=== PATIENT | male | born 2000 ===

== ENCOUNTER 2022-06-16 20:01 | Inpatient (IN) | payer MEDICAID, SELFPAY ==
--- NOTE | ~2022-06-16 | XR_ITS ---
EXAMINATION: LEFT KNEE AND LEFT ANKLE CLINICAL INFORMATION: Pain on flexion COMPARISON: None TECHNIQUE: Left ankle 3 views and left knee 4 views. FINDINGS: Left knee: There is maintained tricompartment joint space. No visible acute fracture, dislocation or subluxation seen. No bony erosive changes. No abnormal joint effusion. Left ankle: The ankle mortise and subtalar joints are normal. There is no visible acute fracture or dislocation. There is bimalleolar mild soft tissue swelling XR/XR knee LT 4V IMPRESSION: Mild bimalleolar soft tissue swelling but no visible acute fracture, dislocation or subluxation seen the ankle mortise is intact. Unremarkable left knee exam.
--- NOTE | ~2022-06-16 | XR_ITS ---
EXAMINATION: LEFT KNEE AND LEFT ANKLE CLINICAL INFORMATION: Pain on flexion COMPARISON: None TECHNIQUE: Left ankle 3 views and left knee 4 views. FINDINGS: Left knee: There is maintained tricompartment joint space. No visible acute fracture, dislocation or subluxation seen. No bony erosive changes. No abnormal joint effusion. Left ankle: The ankle mortise and subtalar joints are normal. There is no visible acute fracture or dislocation. There is bimalleolar mild soft tissue swelling XR/XR ankle LT min 3V IMPRESSION: Mild bimalleolar soft tissue swelling but no visible acute fracture, dislocation or subluxation seen the ankle mortise is intact. Unremarkable left knee exam.
--- NOTE | 2022-06-16 20:13 | ED_ITS ---
HPI - Psych General Chief Complaint: Psychiatric Symptoms Stated Complaint: section 12 Time Seen by Provider: 06/16/22 20:13 Source: patient, EMS and police Mode of arrival: EMS Limitations: altered mental status (Sandra and psychosis) History of Present Illness HPI Narrative: 22-year-old male presents via EMS on Section 12 from [place] in the community escorted by police. Patient has been making vague threats to bystanders and police. Patient is paranoid and delusional. Patient is not answering questions at this time. MD complaint: other (Paranoid and delusional) Onset (ago): unknown Duration: constant History of same: Yes Relieving factors: none Context: not taking psychiatric medications Associated psychiatric symptoms: racing thoughts and delusions Associated symptoms: denies other symptoms Treatments prior to arrival: placed on mental health hold Related Data Home Medications Medication Instructions Recorded Confirmed No Known Home Meds 06/16/22 06/16/22 Allergies Allergy/AdvReac Type Severity Reaction Status Date / Time No Known Allergies Allergy Verified 06/16/22 20:14 Review of Systems Review of Systems: Yes Unobtainable due to mental status (Patient is delusional, uncooperative with review of systems at this time.) [facility] Past Medical History Attestation statement: The following information was validated with the patient. Source: old records reviewed Social History Social History Advance Directives: No Advance Directives Information Provided: Yes Physical Exam Vital Signs: Vital Signs: Last Vital Signs Temp 98.4 F 06/16/22 20:24 Pulse 125 H 06/16/22 20:24 Resp 18 06/16/22 20:24 BP 162/105 H 06/16/22 20:24 Pulse Ox 98 06/16/22 20:24 O2 Del Method 06/16/22 20:24 BMI result Body Mass Index 27.3 Appearance: Alert. Delusional and paranoid. Moderate psychiatric distress Eyes: Pupils equal, round and reactive to light. Sclera nonicteric. ENT: Pharynx normal. Neck: Normal inspection. Neck supple. CVS: Normal heart rate and rhythm. Pulses normal. Respiratory: No respiratory distress. Breath sounds normal. Abdomen: Soft and nontender. Skin: Skin warm and dry. Normal skin color. Normal skin turgor. Extremities: Gait is balanced and coordinated. Neuro: No motor deficit. No sensory deficit. Cranial nerves 2-12 intact. Course Course Course Narrative: 22-year-old male presents via EMS with police escort for paranoid and delusional behavior. Patient has been threatening bystanders as well as police and is a Section 12 bed search from the community. Will order labs and crisis consult. 22:12 Patient is unable to be redirected, pacing about the unit and entering [facility] rooms. Unable to be redirected. Patient willing to take p.o. medications. Order for olanzapine. 23:30 patient continues to pace, intrusive, unable to be redirected. Order for Ativan 2 mg p.o.. 01:38 elevated liver enzymes AST ALT and alk-phos. Patient did not report abdominal pain to palpation on physical exam on presentation, has no history of hepatitis or pancreatitis. Will order CT scan of abdomen pelvis. Lipase is pending. 01:50 sign-out Dr. Monteiro MDM - Psych Differential Diagnosis Differential diagnosis: Likely acute psychosis, bipolar disorder, depression, drug-induced psychotic disorder and acute anxiety Medical Records Attestation: I reviewed the patient's medical records. Lab Data Attestation: I reviewed the patient's lab results. Result diagrams: 06/16/22 21:08 06/16/22 21:08 Labs: Lab Results 06/16/22 06/16/22 06/16/22 Range/Units 20:30 20:43 21:08 WBC 7.6 (4.8-10.8) X10*3/uL RBC 5.68 (4.60-5.80) X10*6/uL Hgb 12.9 L (14.0-18.0) g/dl Hct 40.4 L (42.0-52.0) % MCV 71.1 L (80.0-98.0) fL MCH 22.7 L (27.0-33.0) pg MCHC 31.9 (31.0-36.0) g/dl RDW 15.4 (11.0-16.0) % Plt Count 320 (160-400) X10*3/uL MPV 11.7 (9.4-12.4) fL Immature Gran % (Auto) 0.3 (0.0-0.4) % Neut % (Auto) 73.0 (45-73) % Lymph % (Auto) 19.1 L (20-40) % [place] % (Auto) 7.2 (2-11) % Eos % (Auto) 0.1 (0-4) % Baso % (Auto) 0.3 (0-2) % Lymph # (Auto) 1.5 (1.2-4.9) X10*3/uL [place] # (Auto) 0.6 (0.1-1.2) X10*3/uL Eos # (Auto) 0.0 (0.0-0.4) X10*3/uL Baso # (Auto) 0.0 (0.0-0.2) X10*3/uL Abs Immat Gran (auto) 0.02 (0.00-0.03) X10*3/uL Absolute Neuts (auto) 5.6 (2.0-8.3) x10*3/uL Absolute Nucleated RBC 0.000 (0.0-0.012) X10*3/uL Nucleated RBC % (auto) 0.0 (0.0-0.2) /100WBC Sodium (135-145) mmol/L Potassium (3.3-5.1) mmol/L Chloride (96-108) mmol/L Carbon Dioxide (22-29) mmol/L Anion Gap (12-20) BUN (9-16) mg/dL Creatinine (0.5-1.4) mg/dL Estim Creat Clear Calc Estimated GFR Random Glucose (60-115) mg/dL Calcium (8.4-10.2) mg/dL Total Bilirubin (0.0-1.0) mg/dL AST (5-37) U/L ALT (0-40) U/L Alkaline Phosphatase (39-117) U/L Total Protein (6.5-8.0) g/dL Albumin (3.5-5.0) g/dL Urine Opiates Screen Not Detected (Not Detect) Urine Fentanyl Screen Not Detected (Not Detect) Ur Barbiturates Screen Not Detected (Not Detect) Ur Phencyclidine Scrn Not Detected (Not Detect) Ur Amphetamines Screen Not Detected (Not Detect) U Benzodiazepines Scrn Not Detected (Not Detect) Urine Cocaine Screen Not Detected (Not Detect) U Marijuana (THC) Screen POSITIVE H (Not Detect) Ethyl Alcohol mg/dL COVID-19 (EZIO) Negative (Negative) COVID-19 Clin Com See Note 06/16/22 Range/Units 21:08 WBC (4.8-10.8) X10*3/uL RBC (4.60-5.80) X10*6/uL Hgb (14.0-18.0) g/dl Hct (42.0-52.0) % MCV (80.0-98.0) fL MCH (27.0-33.0) pg MCHC (31.0-36.0) g/dl RDW (11.0-16.0) % Plt Count (160-400) X10*3/uL MPV (9.4-12.4) fL Immature Gran % (Auto) (0.0-0.4) % Neut % (Auto) (45-73) % Lymph % (Auto) (20-40) % [place] % (Auto) (2-11) % Eos % (Auto) (0-4) % Baso % (Auto) (0-2) % Lymph # (Auto) (1.2-4.9) X10*3/uL [place] # (Auto) (0.1-1.2) X10*3/uL Eos # (Auto) (0.0-0.4) X10*3/uL Baso # (Auto) (0.0-0.2) X10*3/uL Abs Immat Gran (auto) (0.00-0.03) X10*3/uL Absolute Neuts (auto) (2.0-8.3) x10*3/uL Absolute Nucleated RBC (0.0-0.012) X10*3/uL Nucleated RBC % (auto) (0.0-0.2) /100WBC Sodium 143 (135-145) mmol/L Potassium 3.9 (3.3-5.1) mmol/L Chloride 109 H (96-108) mmol/L Carbon Dioxide 20 L (22-29) mmol/L Anion Gap 18 (12-20) BUN 10 (9-16) mg/dL Creatinine 1.43 H (0.5-1.4) mg/dL Estim Creat Clear Calc 78.3 Estimated GFR > 60 Random Glucose 142 H (60-115) mg/dL Calcium 10.5 H (8.4-10.2) mg/dL Total Bilirubin 0.6 (0.0-1.0) mg/dL AST 49 H (5-37) U/L ALT 165 H (0-40) U/L Alkaline Phosphatase 136 H (39-117) U/L Total Protein 8.5 H (6.5-8.0) g/dL Albumin 5.2 H (3.5-5.0) g/dL Urine Opiates Screen (Not Detect) Urine Fentanyl Screen (Not Detect) Ur Barbiturates Screen (Not Detect) Ur Phencyclidine Scrn (Not Detect) Ur Amphetamines Screen (Not Detect) U Benzodiazepines Scrn (Not Detect) Urine Cocaine Screen (Not Detect) U Marijuana (THC) Screen (Not Detect) Ethyl Alcohol < 10 mg/dL COVID-19 (EZIO) (Negative) COVID-19 Clin Com Discharge Plan Discharge Clinical Impression: Acute psychosis Patient Disposition: Still a Patient Prescriptions: No Action No Known Home Meds
[2022-06-16 20:24] VITALS: BP 162/105; PULSE 125; RESP 18; TEMP 36.9; O2SAT 98; BMI 27.3
[2022-06-16 21:01] LABS: COVID-19 Test Negative (Negative); IDNOW Serial# 55D5AD1C
[2022-06-16 21:10] LABS: Amphetamine Screen Urine Not Detected (Not Detect); Barbiturates, Urine Not Detected (Not Detect); Benzodiazepines Screen Urine Not Detected (Not Detect); Cannabinoid Screen Urine POSITIVE (Not Detect); Cocaine Screen Urine Not Detected (Not Detect); Fentanyl, urine Not Detected (Not Detect); Opiate Screen Urine Not Detected (Not Detect); Phencyclidine Screen Urine Not Detected (Not Detect)
[2022-06-16 21:14] LABS: MANUAL DIFF FLAG NO
[2022-06-16 21:15] LABS: Basophils Percent Auto 0.3 % (0-2); Eosinophils Percent Auto 0.1 % (0-4); Hematocrit 40.4 % (42.0-52.0); Hemoglobin 12.9 g/dl (14.0-18.0); Imm Gran Abs Auto 0.02 X10*3/uL (0.00-0.03); Imm Gran Pct Auto 0.3 % (0.0-0.4); Lymphocytes Absolute Auto 1.5 X10*3/uL (1.2-4.9); Lymphocytes Percent Auto 19.1 % (20-40); Mean Corpuscular HGB Conc 31.9 g/dl (31.0-36.0); Mean Corpuscular Hemoglobin 22.7 pg (27.0-33.0); Mean Corpuscular Volume 71.1 fL (80.0-98.0); Mean Platelet Volume 11.7 fL (9.4-12.4); Monocytes Absolute Auto 0.6 X10*3/uL (0.1-1.2); Monocytes Percent Auto 7.2 % (2-11); Neutrophils Absolute Auto 5.6 x10*3/uL (2.0-8.3); Platelet Count 320 X10*3/uL (160-400); Red Blood Count 5.68 X10*6/uL (4.60-5.80); Red Cell Distribution Width 15.4 % (11.0-16.0); White Blood Count 7.6 X10*3/uL (4.8-10.8)
[2022-06-16 21:33] LABS: Alanine Aminotransferase 165 U/L (0-40); Albumin Level 5.2 g/dL (3.5-5.0); Alkaline Phosphatase 136 U/L (39-117); Anion Gap 18 (12-20); Aspartate Amino Transferase 49 U/L (5-37); Bilirubin Total 0.6 mg/dL (0.0-1.0); Blood Urea Nitrogen 10 mg/dL (9-16); Calcium 10.5 mg/dL (8.4-10.2); Carbon Dioxide 20 mmol/L (22-29); Chloride 109 mmol/L (96-108); Creatinine Clr Calc Pharmacy 78.3; Estimated Glomerular Filt Rate > 60; Ethanol < 10 mg/dL; Glucose Random 142 mg/dL (60-115); Potassium 3.9 mmol/L (3.3-5.1); Sodium 143 mmol/L (135-145); Total Protein 8.5 g/dL (6.5-8.0)
[2022-06-16] MEDS: OLANZapine 10 MG TABLET PO (23:35)
[2022-06-16] MEDS: LORazepam 1 MG TABLET 2 MG PO (23:38)
--- NOTE | 2022-06-17 | ECG_ITS ---
Test Reason : MEDICAL CLEARANCE Blood Pressure : / mmHG Vent. Rate : 073 BPM Atrial Rate : 073 BPM P-R Int : 128 ms QRS Dur : 098 ms QT Int : 380 ms P-R-T Axes : 039 036 045 degrees QTc Int : 418 ms Normal sinus rhythm with sinus arrhythmia Normal ECG No previous ECGs available Referred By: Stacie Holloway Electronically Signed By:MINESH NORIEGA MD
[2022-06-17 01:56] LABS: Lipase 13 U/L (8-78)
--- NOTE | 2022-06-17 06:20 | PC.NURSE ---
Patient slept through the night, no distress observed/reported, patient was hyper-verbal, tangential, loud and disruptive at time but re-directable, Olanzapine 10 mg PO and Ativan 2 mg PO administered as ordered at 2348, disposition per [facility] from community is section 12 inpatient bed search, pending CT of abdomen and pelvis, will continue to monitor.
--- NOTE | 2022-06-17 07:20 | PC.NURSE ---
patient appears to remain asleep at present respirations are even and unlabored patient appears in no distress
[2022-06-17 10:04] VITALS: BP 113/75; PULSE 103; RESP 18; TEMP 36.8; O2SAT 100
[2022-06-17 10:20] LABS: Alanine Aminotransferase 149 U/L (0-40); Albumin Level 5.1 g/dL (3.5-5.0); Alkaline Phosphatase 140 U/L (39-117); Anion Gap 16 (12-20); Aspartate Amino Transferase 43 U/L (5-37); Bilirubin Direct 0.4 mg/dL (0.0-0.5); Bilirubin Total 0.9 mg/dL (0.0-1.0); Blood Urea Nitrogen 10 mg/dL (9-16); Calcium 10.4 mg/dL (8.4-10.2); Carbon Dioxide 25 mmol/L (22-29); Chloride 107 mmol/L (96-108); Creatinine Clr Calc Pharmacy 101.9; Estimated Glomerular Filt Rate > 60; Glucose Random 92 mg/dL (60-115); Potassium 3.8 mmol/L (3.3-5.1); Sodium 144 mmol/L (135-145); Total Protein 8.6 g/dL (6.5-8.0)
[2022-06-17] MEDS: OLANZapine 5 MG TABLET PO (14:37)
[2022-06-17 15:16] VITALS: BP 136/96; PULSE 126; RESP 17; TEMP 36.4; O2SAT 97
--- NOTE | 2022-06-17 17:45 | PC.NURSE ---
Pt is a 22 year old male who was brought by D after [facility] crisis were called in the community by pt's boyfriend. Earlier pt had been served with a restraining order for making threats to an ex-roomate. Pt is reported to have been off meds the past three months and has a history of Bipolar disorder. Today pt is lying in bed but sat up on his side to cooperated with the admission. He was hyperverbal, had difficulty staying on topic and repeatedly told this senior copywriter that this wasn't the place for him and that he wishes to leave; pt signed a CV, then a a three day notice. Pt reports he lives with his mother and sister and sees his boyfriend frequently. Pt reports he has had other psych admissions, the last about two years ago but he could not remember where. Mecical issue/complaint was an injury to his left knee which appears edematous, pt reports he fell and hit his knee although it is unclear how, pt has difficulty with organzing his thoughts enough to describe such an event. Pt denies substance use history other than marijuana, which he vapes throughout the day. Pt reports he has difficulty staying asleep. Pt Covid neg, labs are positive for cannabis, LFT's a little elevated and slightly anemic. ESHA Dumont aware of admission, pt resting in bed.
--- NOTE | 2022-06-17 17:59 | HO.PSYADMNOT ---
HPI Date of Service: 06/17/22 Chief Complaint: Bipolar Disorder, Sandra with Psychosis Sources of Information: patient interviewed, chart reviewed and crisis/core team assessment reviewed HPI Subjective Notes: Toribio Warning and Conditional Voluntary Healthcare Proxy: No Guardianship: No Medical Problems Affecting Mental Status: No Narrative: Rickey Aleman is a 22 y.o. Male who carries a diagnosis of Bipolar I DO. He presented to [facility] ED 06/17 via section 12a escorted by police due to pt making vague threats to bystanders and police, manic. Has been med non-adherent x 3 months because they made him feel ?suicidal? and he has been self medicating with cannabis instead, most recently on trintellix 20 mg, depakote ER 500 mg, olanzapine 10 mg, and vraylar 1.5 mg. In the ED, lab work showed mild elevation in LFTs, however imaging done as pt denied abdominal pain.?? Per crisis eval, pt's boyfriend reported that he has been decompensating for the past 3 months since he stopped taking his medications. Stated he has been delusional and verbally aggressive. Pt?s mother also reported he has been decompensating for the past few months. I evaluated the pt this evening and upon interview he reports ?if anybody gets in my way, I will saurav you.? Says his bf?s roommates have been making false accusations that he was doing drugs. Pt is labile during the interview, at times tearful and then excitable. Owns business, [employer], anything for a alliance party. He currently denies SI/SIB/HI. Denies AH. Says he has ?more anger and stress.? Appetite is low. Sleep is poor, endorses hyposomnia. Per staff, pt has been intrusive and agitated. Past Psychiatric History: -Hx of IPLOC in [place], no records available per crisis eval --Current OP psych services at [facility] in [place], [place]. OP provider is Jeanette Hilliard -Past meds: Depakote ER 500 mg (started 06/26/2021, last filled 04/21/2022), olanzapine 10 mg QHS (last filled 04/21/2022), olanzapine 15 mg (started 06/26/2021, last filled 03/11/2022), invega 3 mg QHS (started 06/26/2021, last filled 03/11/2022), trazodone 100 mg QHS (started 07/06/21, last filled 03/10/2022), trintellix (started at 10 mg on 08/18/2021, increased to 20 mg in 01/22/22 and last filled 04/21/22), vraylar 1.5 mg (started 04/21/2022). Also says he has been on lithium but it made him feel ?slower. Medical Evaluation Reviewed: Yes [facility] Medical History (Updated 06/19/22 @ 22:24 by Julia Schilling NP) Bipolar disorder Social History: -Legal: [place] Police reported that they had served Ash a restraining order on 06/17/22 due to making verbal threats to his previous roommates over the phone. -From [place]. Close with his bio mom. Has been residing in [place] with his bf x 4 yrs for the past few months. 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 However, per crisis eval pt is currently unemployed. Substance History: -Cannabis- daily use. Uses a vape pen multiple times throughout the day. Diagnostics Vital Signs (24Hr): Vital Signs - 24 hr 06/16/22 20:24 06/17/22 10:04 06/17/22 15:16 Temperature 98.4 F 98.3 F 97.6 F Pulse Rate 125 H 103 H 126 H Respiratory Rate 18 18 17 Blood Pressure 162/105 H 113/75 136/96 H Pulse Oximetry 98 100 97 Oxygen Delivery Method Room Air Room Air Room Air BMI result Body Mass Index 27.3 Labs Results: 06/16/22 21:08 06/17/22 09:39 Labs: Laboratory Results - last 48 hr 06/16/22 06/16/22 06/16/22 20:30 20:43 21:08 WBC 7.6 RBC 5.68 Hgb 12.9 L Hct 40.4 L MCV 71.1 L MCH 22.7 L MCHC 31.9 RDW 15.4 Plt Count 320 MPV 11.7 Immature Gran % (Auto) 0.3 Neut % (Auto) 73.0 Lymph % (Auto) 19.1 L [place] % (Auto) 7.2 Eos % (Auto) 0.1 Baso % (Auto) 0.3 Lymph # (Auto) 1.5 [place] # (Auto) 0.6 Eos # (Auto) 0.0 Baso # (Auto) 0.0 Abs Immat Gran (auto) 0.02 Absolute Neuts (auto) 5.6 Absolute Nucleated RBC 0.000 Nucleated RBC % (auto) 0.0 Sodium Potassium Chloride Carbon Dioxide Anion Gap BUN Creatinine Estim Creat Clear Calc Estimated GFR Random Glucose Calcium Total Bilirubin Direct Bilirubin AST ALT Alkaline Phosphatase Total Protein Albumin Lipase Urine Opiates Screen Not Detected Urine Fentanyl Screen Not Detected Ur Barbiturates Screen Not Detected Ur Phencyclidine Scrn Not Detected Ur Amphetamines Screen Not Detected U Benzodiazepines Scrn Not Detected Urine Cocaine Screen Not Detected U Marijuana (THC) Screen POSITIVE H Ethyl Alcohol COVID-19 (EZIO) Negative COVID-19 [employer] See Note 06/16/22 06/17/22 21:08 09:39 WBC RBC Hgb Hct MCV MCH MCHC RDW Plt Count MPV Immature Gran % (Auto) Neut % (Auto) Lymph % (Auto) [place] % (Auto) Eos % (Auto) Baso % (Auto) Lymph # (Auto) [place] # (Auto) Eos # (Auto) Baso # (Auto) Abs Immat Gran (auto) Absolute Neuts (auto) Absolute Nucleated RBC Nucleated RBC % (auto) Sodium 143 144 Potassium 3.9 3.8 Chloride 109 H 107 Carbon Dioxide 20 L 25 Anion Gap 18 16 BUN 10 10 Creatinine 1.43 H 1.10 Estim Creat Clear Calc 78.3 101.9 Estimated GFR > 60 > 60 Random Glucose 142 H 92 D Calcium 10.5 H 10.4 H Total Bilirubin 0.6 0.9 Direct Bilirubin 0.4 AST 49 H 43 H ALT 165 H 149 H Alkaline Phosphatase 136 H 140 H Total Protein 8.5 H 8.6 H Albumin 5.2 H 5.1 H Lipase 13 Urine Opiates Screen Urine Fentanyl Screen Ur Barbiturates Screen Ur Phencyclidine Scrn Ur Amphetamines Screen U Benzodiazepines Scrn Urine Cocaine Screen U Marijuana (THC) Screen Ethyl Alcohol < 10 COVID-19 (EZIO) COVID-19 [facility] Meds/Allergies Meds Home Medications Medication Instructions Recorded Confirmed Type No Known Home Meds 06/16/22 06/16/22 History Allergies Allergies Allergy/AdvReac Type Severity Reaction Status Date / Time No Known Allergies Allergy Verified 06/16/22 20:14 Mental Status Exam Mental Status Exam Narrative: A&O except to situation. Pt is overweight, in hospital attire, unkempt. At times intense eye contact, inattentive. No Tics or Tremors. No abnormal involuntary movements. Activated, labile, willing to engage and overall cooperative. Pressured speech, spontaneous with regular rate and rhythm, elevated volume. No prolonged speech latency or dysarthria. Mood is [did not state], affect is labile. Denies SI/SIB/HI upon inquiry. Denies A/VH. Endorses paranoid delusional thought content. Thoughts are tangential, grandiose. No known cognitive or memory impairment. Insight/ Judgment limited. Assessment & Plan Assessment & Plan (1) Bipolar 1 disorder: Status: Acute Code(s): F31.9 - Bipolar disorder, unspecified Plan Rickey Aleman is a 22 y.o. Male who carries a diagnosis of Bipolar I DO. He presented to [facility] ED 06/17 via section 12a escorted by police due to pt making vague threats to bystanders and police, manic. Has been med non-adherent x 3 months because they made him feel ?suicidal? and he has been self medicating with cannabis instead, most recently on trintellix 20 mg, depakote ER 500 mg, olanzapine 10 mg, and vraylar 1.5 mg. Plan: Will re-order LFTs in a couple days due to mild elevation on admission. 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 Xray showed soft tissue swelling.?Will start risperdal 1 mg BID, as pt does not want to be on olanzapine anymore, this was being tapered down by OP provider. Pt was started on vraylar for cross titration, however pt would benefit from mood stabilizer with faster onset of action. Will start clonidine 0.1 mg TID PRN for hyperarousal. Start klonopin 1 mg QHS for hyposomnia. Patient educated on: diagnosis, medication risk/benefits and therapeutic strategies Reason for continued inpatient stay Substantial Risk for: rapid decompensation and med/psych decompensation
[2022-06-17] MEDS: Nicotine 14 MG PATCH.TD24 TRANSDERMA (21:22)
[2022-06-17] MEDS: risperiDONE 1 MG TABLET PO (21:22)
[2022-06-17] MEDS: traZODone HCL 50 MG TABLET PO (21:27)
[2022-06-17] MEDS: clonazePAM 1 MG TABLET PO (21:27)
[2022-06-17] MEDS: cloNIDine HCL 0.1 MG TABLET PO (21:27)
--- NOTE | 2022-06-17 21:36 | PC.NURSE ---
Pt submitted a Three Day Notice on 06/17/2022 up on Tuesday06/22/2022.
[2022-06-17 22:21] VITALS: BP 140/94; PULSE 114; RESP 22; TEMP 35.9; O2SAT 100
[2022-06-18] MEDS: risperiDONE 1 MG TABLET PO ×2 (09:25→21:54)
[2022-06-18] MEDS: Nicotine 14 MG PATCH.TD24 TRANSDERMA (09:25)
[2022-06-18 09:28] VITALS: BP 112/56; PULSE 97; RESP 20; TEMP 36.5; O2SAT 99
[2022-06-18 09:31] LABS: Estimated Average Glucose 114 mg/dL; Hemoglobin A1c % 5.6 %
[2022-06-18 10:03] LABS: Cholesterol 124 mg/dL; HDL Cholesterol 33 mg/dL; LDL Cholesterol Calculated 78 mg/dl; Triglycerides 68 mg/dL
[2022-06-18 10:24] LABS: Free T4 (Free Thyroxine) 1.33 ng/dL (0.71-1.85); Thyroid Stimulating Hormone 0.76 uIU/mL (0.32-4.0)
[2022-06-18 10:36] LABS: Folate 5.8 ng/mL (> or = 4.0); Vitamin B12 427 pg/mL (200-900)
[2022-06-18] MEDS: hydrOXYzine HCL 25 MG TABLET PO (12:05)
[2022-06-18] MEDS: OLANZapine 5 MG TABLET PO (13:30)
--- NOTE | 2022-06-18 17:03 | P.PNPSI_ITS ---
Subjective Subjective Date of Service: 06/18/22 Reason For Visit: Bipolar Disorder, Sam with Psychosis Subjective Notes: 3 Day Healthcare Proxy: No Guardianship: No Medical Problems Affecting Mental Status: No Interim History: Rickey with sam, agitation, fear, threatening behavioral sx. Fears he will get COVID. Review of infection control precautions. Pt spoke with Lacey Hooks RN Director of Behavioral Health as well. Several dimensions of legal threats if we do not discharge him immediately. Discussed that we will need to sort things out. Initiated this by placing calls to his identified contacts which no one was available to discuss current concerns and events [employer] Connie, sister [phone] Anthony, partner [phone] Rickey-father [phone] Messages were not left as there was no indication that these voice mails were confidential. 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 Encouraged Rickey to make contact with family/partner, we could all meet and organize a plan of care which was safe, complete and beneficial for him. He responded with a promise to take your job-you will never work again . Stated this was OK, but we still needed to find a plan that supported him in a safe, complete and beneficial way. Medication Compliance: Yes (just started Risperdal) Side effects from medications: No Attending Groups: No Review of Systems Acute medical concerns: No Medical Review of Systems: unchanged Review of Systems Reports behavioral changes and Reports confusion Psychiatric: Reports anxiety, Reports behavioral changes, Reports confusion, Reports depression, Reports difficulty concentrating, Reports hopelessness, Reports irritability, Reports anhedonia, Reports mood swings and Reports paranoia Mental Status Exam Mental Status Exam Patient Appearance: Disheveled Patient Orientation: Person, Place, Time and Situation Level of Consciousness: Alert Patient Behavior: Guarded, Talkative, Hyperactive, Suspicious, Restless, Verbal Threats, Fearful, Resistive to Care, Distractible, Good Eye Contact, Impulsive and Pacing Mood Description: Labile Affect Description: Labile Patient Cognition Impaired: Yes Ability to Follow Directions: Good Speech Pattern: Spontaneous Speech and Pressured Memory Description: Episodic Impaired Hallucinations: None Delusions: Paranoid Ideation and Grandiose Perceptual Disturbances: Depersonalization and Derealization Thought Process: Racing, Distracted and Rumination Thought Content: positive for Racing, positive for Circumstantial and positive for Tangential Depressive Symptoms: Increased Anxiety and Increased Irritability Abnormal Motor Activity Signs and Symptoms: Agitation and Restlessness Judgement: Poor Diagnostics Vital Signs (24Hr): Vital Signs - 24 hr 06/17/22 22:21 06/18/22 09:28 Temperature 96.6 F L 97.7 F Pulse Rate 114 H 97 Respiratory Rate 22 H 20 Blood Pressure 140/94 H 112/56 L Pulse Oximetry 100 99 Oxygen Delivery Method Room Air Room Air BMI result Body Mass Index 27.3 Labs Results: 06/16/22 21:08 06/17/22 09:39 Labs: Laboratory Results - last 48 hr 06/16/22 06/16/22 06/16/22 20:30 20:43 21:08 WBC 7.6 RBC 5.68 Hgb 12.9 L Hct 40.4 L MCV 71.1 L MCH 22.7 L MCHC 31.9 RDW 15.4 Plt Count 320 MPV 11.7 Immature Gran % (Auto) 0.3 Neut % (Auto) 73.0 Lymph % (Auto) 19.1 L [place] % (Auto) 7.2 Eos % (Auto) 0.1 Baso % (Auto) 0.3 Lymph # (Auto) 1.5 [place] # (Auto) 0.6 Eos # (Auto) 0.0 Baso # (Auto) 0.0 Abs Immat Gran (auto) 0.02 Absolute Neuts (auto) 5.6 Absolute Nucleated RBC 0.000 Nucleated RBC % (auto) 0.0 Sodium Potassium Chloride Carbon Dioxide Anion Gap BUN Creatinine Estim Creat Clear Calc Estimated GFR Random Glucose Estimat Average Glucose Hemoglobin A1c % Calcium Magnesium Total Bilirubin Direct Bilirubin AST ALT Alkaline Phosphatase Total Protein Albumin Triglycerides Cholesterol LDL Cholesterol, Calc HDL Cholesterol Lipase Vitamin B12 Folate TSH Free T4 Urine Opiates Screen Not Detected Urine Fentanyl Screen Not Detected Ur Barbiturates Screen Not Detected Ur Phencyclidine Scrn Not Detected Ur Amphetamines Screen Not Detected U Benzodiazepines Scrn Not Detected Urine Cocaine Screen Not Detected U Marijuana (THC) Screen POSITIVE H Ethyl Alcohol COVID-19 (EZIO) Negative COVID-19 Clin Com See Note 06/16/22 06/17/22 06/18/22 21:08 09:39 08:06 WBC RBC Hgb Hct MCV MCH MCHC RDW Plt Count MPV Immature Gran % (Auto) Neut % (Auto) Lymph % (Auto) [place] % (Auto) Eos % (Auto) Baso % (Auto) Lymph # (Auto) [place] # (Auto) Eos # (Auto) Baso # (Auto) Abs Immat Gran (auto) Absolute Neuts (auto) Absolute Nucleated RBC Nucleated RBC % (auto) Sodium 143 144 Potassium 3.9 3.8 Chloride 109 H 107 Carbon Dioxide 20 L 25 Anion Gap 18 16 BUN 10 10 Creatinine 1.43 H 1.10 Estim Creat Clear Calc 78.3 101.9 Estimated GFR > 60 > 60 Random Glucose 142 H 92 D Estimat Average Glucose 114 Hemoglobin A1c % 5.6 Calcium 10.5 H 10.4 H Magnesium Total Bilirubin 0.6 0.9 Direct Bilirubin 0.4 AST 49 H 43 H ALT 165 H 149 H Alkaline Phosphatase 136 H 140 H Total Protein 8.5 H 8.6 H Albumin 5.2 H 5.1 H Triglycerides Cholesterol LDL Cholesterol, Calc HDL Cholesterol Lipase 13 Vitamin B12 Folate TSH Free T4 Urine Opiates Screen Urine Fentanyl Screen Ur Barbiturates Screen Ur Phencyclidine Scrn Ur Amphetamines Screen U Benzodiazepines Scrn Urine Cocaine Screen U Marijuana (THC) Screen Ethyl Alcohol < 10 COVID-19 (EZIO) COVID-19 [employer] Com 06/18/22 06/18/22 08:06 08:06 WBC RBC Hgb Hct MCV MCH MCHC RDW Plt Count MPV Immature Gran % (Auto) Neut % (Auto) Lymph % (Auto) [place] % (Auto) Eos % (Auto) Baso % (Auto) Lymph # (Auto) [place] # (Auto) Eos # (Auto) Baso # (Auto) Abs Immat Gran (auto) Absolute Neuts (auto) Absolute Nucleated RBC Nucleated RBC % (auto) Sodium Potassium Chloride Carbon Dioxide Anion Gap BUN Creatinine Estim Creat Clear Calc Estimated GFR Random Glucose Estimat Average Glucose Hemoglobin A1c % Calcium Magnesium 2.0 Total Bilirubin Direct Bilirubin AST ALT Alkaline Phosphatase Total Protein Albumin Triglycerides 68 Cholesterol 124 LDL Cholesterol, Calc 78 HDL Cholesterol 33 Lipase Vitamin B12 427 Folate 5.8 TSH 0.76 Free T4 1.33 Urine Opiates Screen Urine Fentanyl Screen Ur Barbiturates Screen Ur Phencyclidine Scrn Ur Amphetamines Screen U Benzodiazepines Scrn Urine Cocaine Screen U Marijuana (THC) Screen Ethyl Alcohol COVID-19 (EZIO) COVID-19 Clin Com Imaging Radiology Impressions: ITS Impressions Ankle X-Ray 06/17/22 21:06 IMPRESSION: Mild bimalleolar soft tissue swelling but no visible acute fracture, dislocation or subluxation seen the ankle mortise is intact. Unremarkable left knee exam. Knee X-Ray 06/17/22 21:06 IMPRESSION: Mild bimalleolar soft tissue swelling but no visible acute fracture, dislocation or subluxation seen the ankle mortise is intact. Unremarkable left knee exam. Medications Medications Current Medications Acetaminophen (Acetaminophen 325 Mg Tablet) 650 mg PO Q6H PRN PRN Reason: Headache/Pain Mild Scale (1-3) Al Hydroxide/Mg Hydroxide (Magnesium Hydrox/Alum Hydrox 30 Ml Oral.Susp) 30 ml PO Q6H PRN PRN Reason: Heartburn/Nausea Benzocaine (Throat Lozenge, Medicated Lozenge) 1 lozenge MUCOUS MEM Q2H PRN PRN Reason: Sore Throat Clonazepam (Clonazepam 1 Mg Tablet) 1 mg PO BEDTIME PRN PRN Reason: insomnia Last Admin: 06/17/22 21:27 Dose: 1 mg Clonidine HCl (Clonidine Hcl 0.1 Mg Tablet) 0.1 mg PO TID PRN; Protocol PRN Reason: hyperarousal, anxiety Last Admin: 06/17/22 21:27 Dose: 0.1 mg Hydroxyzine HCl (Hydroxyzine Hcl 25 Mg Tablet) 25 mg PO Q6H PRN PRN Reason: Anxiety Last Admin: 06/18/22 12:05 Dose: 25 mg Magnesium Hydroxide (Milk Of Magnesia 30 Ml Oral.Susp) 30 ml PO DAILY PRN PRN Reason: Constipation Nicotine (Nicotine 14 Mg Patch.Td24) 14 mg TRANSDERMA DAILY [facility] Last Admin: 06/18/22 09:25 Dose: 14 mg Nicotine Polacrilex (Nicotine Polacrilex 2 Mg Gum) 4 mg BUCCAL Q2H PRN PRN Reason: nicotine withdrawal Olanzapine (Olanzapine 5 Mg Tablet) 5 mg PO Q4H PRN PRN Reason: psychosis Last Admin: 06/18/22 13:30 Dose: 5 mg Risperidone (Risperidone 1 Mg Tablet) 1 mg PO BID [facility] Last Admin: 06/18/22 09:25 Dose: 1 mg Trazodone HCl (Trazodone Hcl 50 Mg Tablet) 50 mg PO BEDTIME PRN PRN Reason: Insomnia Last Admin: 06/17/22 21:27 Dose: 50 mg Allergies Allergies Allergy/AdvReac Type Severity Reaction Status Date / Time No Known Allergies Allergy Verified 06/16/22 20:14 Assessment & Plan Assessment & Plan (1) Bipolar disorder: Status: Acute Code(s): F31.9 - Bipolar disorder, unspecified Plan 06/18/22: Continue regime If Risperdal is tolerated, consider adding [place]/Depakote to further assist in stabilization Collateral contacts to review plan of care Rickey will agree with. I spent minutes with the patient and/or on the patient floor today, greater than?50% of which was spent counseling/coordinating care. Patient educated on: therapeutic strategies Informed Consent: further education needed Reason for contiued inpatient stay Substantial Risk for: harm to self, harm to others, inability to function and rapid decompensation
[2022-06-18 21:10] VITALS: BP 140/91; PULSE 118; TEMP 36.5
[2022-06-18] MEDS: Acetaminophen 325 MG TABLET 650 MG PO (21:52)
[2022-06-18] MEDS: traZODone HCL 50 MG TABLET PO (21:54)
[2022-06-18] MEDS: clonazePAM 1 MG TABLET PO (21:54)
[2022-06-18] MEDS: Nicotine Polacrilex 2 MG GUM 4 MG BUCCAL (21:54)
[2022-06-18] MEDS: Throat Lozenge, Medicated LOZENGE 1 LOZENGE MUCOUS MEM (21:55)
[2022-06-19 06:00] VITALS: BP 133/89; PULSE 109; RESP 18; TEMP 36.4; O2SAT 100
[2022-06-19] MEDS: Nicotine 14 MG PATCH.TD24 TRANSDERMA (08:22)
[2022-06-19] MEDS: risperiDONE 1 MG TABLET PO ×2 (08:22→20:16)
[2022-06-19 16:58] LABS: CT PCR NOT DETECTED (Not Detect.); NG PCR NOT DETECTED (Not Detect.)
[2022-06-19 18:00] VITALS: BP 131/77; PULSE 108; RESP 16; TEMP 36.9
[2022-06-19] MEDS: Divalproex Sodium ER 500 MG TAB.ER.24H PO (20:17)
[2022-06-19] MEDS: clonazePAM 1 MG TABLET PO (20:17)
[2022-06-19] MEDS: traZODone HCL 50 MG TABLET PO ×2 (21:03)
[2022-06-19] MEDS: hydrOXYzine HCL 25 MG TABLET PO ×2 (21:04)
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
[2022-06-20] MEDS: traZODone HCL 50 MG TABLET PO ×3 (02:03→21:41)
[2022-06-20] MEDS: cloNIDine HCL 0.1 MG TABLET PO ×2 (02:03→21:13)
[2022-06-20 06:00] VITALS: BP 130/84; PULSE 98; TEMP 36.9; O2SAT 100
[2022-06-20] MEDS: risperiDONE 1 MG TABLET PO ×2 (09:12→20:32)
[2022-06-20] MEDS: OLANZapine 5 MG TABLET PO (09:15)
[2022-06-20] MEDS: Nicotine 14 MG PATCH.TD24 TRANSDERMA (09:18)
[2022-06-20] MEDS: hydrOXYzine HCL 25 MG TABLET PO (10:32)
[2022-06-20] MEDS: Throat Lozenge, Medicated LOZENGE 1 LOZENGE MUCOUS MEM ×2 (11:19→20:32)
[2022-06-20] MEDS: Nicotine Polacrilex 2 MG GUM 4 MG BUCCAL (11:21)
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
[2022-06-20] MEDS: clonazePAM 1 MG TABLET PO (20:32)
[2022-06-20] MEDS: Divalproex Sodium ER 500 MG TAB.ER.24H PO (20:32)
[2022-06-20] MEDS: Magnesium Hydrox/Alum Hydrox 30 ML ORAL.SUSP PO (20:33)
[2022-06-20] MEDS: Loperamide HCl 2 MG CAPSULE 4 MG PO (20:33)
[2022-06-20 21:10] VITALS: BP 148/81; PULSE 77; RESP 14; TEMP 36.4
[2022-06-21] MEDS: hydrOXYzine HCL 25 MG TABLET PO ×2 (02:52→10:27)
[2022-06-21] MEDS: traZODone HCL 50 MG TABLET PO (02:53)
[2022-06-21] MEDS: Nicotine Polacrilex 2 MG GUM 4 MG BUCCAL ×2 (03:11→23:30)
[2022-06-21] MEDS: OLANZapine 5 MG TABLET PO ×3 (04:28→22:24)
[2022-06-21 06:00] VITALS: BP 135/82; PULSE 93; TEMP 36.8; O2SAT 99
[2022-06-21 07:15] LABS: Syphilis Screen Nonreactive (Nonreactive)
[2022-06-21 07:36] LABS: HIV AB/AG Nonreactive (Nonreactive); HIV Num 1 0.08 S/CO (0.00-0.99)
[2022-06-21] MEDS: Nicotine 14 MG PATCH.TD24 TRANSDERMA (09:19)
[2022-06-21] MEDS: risperiDONE 1 MG TABLET PO ×2 (09:19→21:13)
[2022-06-21] MEDS: cloNIDine HCL 0.1 MG TABLET PO ×2 (15:23→22:24)
[2022-06-21] MEDS: Throat Lozenge, Medicated LOZENGE 1 LOZENGE MUCOUS MEM ×2 (15:23→21:51)
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
[2022-06-21 18:00] VITALS: BP 109/67; PULSE 77; RESP 16; TEMP 35.8; O2SAT 97
[2022-06-21] MEDS: Divalproex Sodium ER 500 MG TAB.ER.24H PO (21:13)
[2022-06-21] MEDS: clonazePAM 1 MG TABLET PO (21:51)
[2022-06-21] MEDS: Magnesium Hydrox/Alum Hydrox 30 ML ORAL.SUSP PO (22:26)
[2022-06-22] MEDS: OLANZapine 5 MG TABLET PO ×4 (04:49→23:01)
[2022-06-22 06:00] VITALS: BP 103/60; PULSE 61; RESP 17; TEMP 36.3; O2SAT 99
[2022-06-22] MEDS: cloNIDine HCL 0.1 MG TABLET PO ×2 (10:36→22:07)
[2022-06-22] MEDS: Nicotine 14 MG PATCH.TD24 TRANSDERMA (10:36)
[2022-06-22] MEDS: risperiDONE 1 MG TABLET PO ×2 (10:36→19:30)
[2022-06-22] MEDS: hydrOXYzine HCL 25 MG TABLET PO ×2 (10:39→16:08)
[2022-06-22] MEDS: Acetaminophen 325 MG TABLET 650 MG PO (10:40)
[2022-06-22] MEDS: Loperamide HCl 2 MG CAPSULE PO ×2 (11:04→16:08)
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
[2022-06-22] MEDS: Bismuth Subsalicylate 262 MG TABLET 524 MG PO (16:09)
[2022-06-22 18:00] VITALS: BP 110/68; PULSE 70; RESP 20; TEMP 36.6
[2022-06-22] MEDS: Nicotine Polacrilex 2 MG GUM 4 MG BUCCAL (19:30)
--- NOTE | 2022-06-22 20:31 | PC.NURSE ---
Pt submitted a Three Day Notice on Tuesday06/22/2022 up on Tuesday06/25/2022.
[2022-06-22] MEDS: Divalproex Sodium ER 250 MG TAB.ER.24H 750 MG PO (22:07)
[2022-06-22] MEDS: clonazePAM 1 MG TABLET PO (22:07)
[2022-06-22] MEDS: traZODone HCL 50 MG TABLET PO (23:02)
[2022-06-23] MEDS: Throat Lozenge, Medicated LOZENGE 1 LOZENGE MUCOUS MEM (04:52)
[2022-06-23] MEDS: hydrOXYzine HCL 25 MG TABLET PO (04:52)
[2022-06-23] MEDS: cloNIDine HCL 0.1 MG TABLET PO (04:52)
[2022-06-23 06:00] VITALS: BP 114/84; PULSE 96; RESP 16; TEMP 35.9; O2SAT 99
[2022-06-23] MEDS: Nicotine 14 MG PATCH.TD24 TRANSDERMA (09:50)
[2022-06-23] MEDS: risperiDONE 1 MG TABLET PO (09:50)
--- NOTE | 2022-06-23 14:38 | PM.PSYDC ---
DS: Providers Provider Date of Service: 06/23/22 Date of admission: 06/17/22 14:16 Date of discharge: 06/23/22 Primary care physician: Unknown Physician Admitting clinician: Julia Schilling Attending physician on admission: Cisco Durham Attending physician on discharge: Cisco Durham Discharging clinician: Shireen Vazquez DS: Diagnosis Discharge Diagnosis (1) Bipolar 1 disorder: Status: Acute DS: Medications Discharge Medications Home Medications: Previous Rx's Medication Instructions Recorded bismuth subsalicylate 262 mg 524 mg PO BID PRN 06/23/22 tablet ([place] Bismuth) dyspepsia,diarrhea #60 tabs clonazepam 1 mg tablet 1 mg PO BEDTIME PRN insomnia #7 06/23/22 tabs clonidine HCl 0.1 mg tablet 0.1 mg PO TID PRN hyperarousal, 06/23/22 anxiety #30 tabs divalproex 250 mg tablet,extended 750 mg PO BEDTIME #90 tabs 06/23/22 release 24 hr hydroxyzine HCl 25 mg tablet 25 mg PO Q6H PRN Anxiety #30 tabs 06/23/22 lidocaine 5 % topical patch 1 patch topical DAILY #30 ea 06/23/22 (Lidoderm) loperamide 2 mg capsule 2 mg PO Q6H PRN Diarrhea #15 caps 06/23/22 olanzapine 5 mg tablet 5 mg PO BEDTIME #30 tabs 06/23/22 risperidone 1 mg tablet 1 mg PO BID #60 tabs 06/23/22 Mental Status Exam Mental Status Exam Patient Appearance: Appropriate Patient Orientation: Person, Place, Time and Situation Level of Consciousness: Sedated and Alert Patient Behavior: Talkative and Good Eye Contact Mood Description: Cheerful, Labile and Expansive Affect Description: Labile Patient Cognition Impaired: No Ability to Follow Directions: Good Speech Pattern: Spontaneous Speech Memory Description: Intact Hallucinations: None Delusions: Not Present Thought Process: Distracted Thought Content: positive for Circumstantial Depressive Symptoms: Increased Anxiety Judgement: Good Data Data Completed and Pending Completed studies during hospitalization [Text1]: 06/16/22 06/16/22 06/16/22 20:30 20:43 21:08 WBC 7.6 RBC 5.68 Hgb 12.9 L Hct 40.4 L MCV 71.1 L MCH 22.7 L MCHC 31.9 RDW 15.4 Plt Count 320 MPV 11.7 Immature Gran % (Auto) 0.3 Neut % (Auto) 73.0 Lymph % (Auto) 19.1 L [place] % (Auto) 7.2 Eos % (Auto) 0.1 Baso % (Auto) 0.3 Lymph # (Auto) 1.5 [place] # (Auto) 0.6 Eos # (Auto) 0.0 Baso # (Auto) 0.0 Abs Immat Gran (auto) 0.02 Absolute Neuts (auto) 5.6 Absolute Nucleated RBC 0.000 Nucleated RBC % (auto) 0.0 Sodium Potassium Chloride Carbon Dioxide Anion Gap BUN Creatinine Estim Creat Clear Calc Estimated GFR Random Glucose Estimat Average Glucose Hemoglobin A1c % Calcium Magnesium Total Bilirubin Direct Bilirubin AST ALT Alkaline Phosphatase Total Protein Albumin Triglycerides Cholesterol LDL Cholesterol, Calc HDL Cholesterol Lipase Vitamin B12 Folate TSH Free T4 Urine Opiates Screen Not Detected Urine Fentanyl Screen Not Detected Ur Barbiturates Screen Not Detected Ur Phencyclidine Scrn Not Detected Ur Amphetamines Screen Not Detected U Benzodiazepines Scrn Not Detected Urine Cocaine Screen Not Detected U Marijuana (THC) Screen POSITIVE H Ethyl Alcohol T.pallidum Ab (EIA) Chlam trachomat DNA PCR COVID-19 (EZIO) Negative COVID-19 Clin Com See Note HIV 1&2 Ab/P24 Ag 4thGn N.gonorrhoeae DNA (PCR) 06/16/22 06/17/22 06/18/22 21:08 09:39 08:06 WBC RBC Hgb Hct MCV MCH MCHC RDW Plt Count MPV Immature Gran % (Auto) Neut % (Auto) Lymph % (Auto) [place] % (Auto) Eos % (Auto) Baso % (Auto) Lymph # (Auto) [place] # (Auto) Eos # (Auto) Baso # (Auto) Abs Immat Gran (auto) Absolute Neuts (auto) Absolute Nucleated RBC Nucleated RBC % (auto) Sodium 143 144 Potassium 3.9 3.8 Chloride 109 H 107 Carbon Dioxide 20 L 25 Anion Gap 18 16 BUN 10 10 Creatinine 1.43 H 1.10 Estim Creat Clear Calc 78.3 101.9 Estimated GFR > 60 > 60 Random Glucose 142 H 92 D Estimat Average Glucose 114 Hemoglobin A1c % 5.6 Calcium 10.5 H 10.4 H Magnesium Total Bilirubin 0.6 0.9 Direct Bilirubin 0.4 AST 49 H 43 H ALT 165 H 149 H Alkaline Phosphatase 136 H 140 H Total Protein 8.5 H 8.6 H Albumin 5.2 H 5.1 H Triglycerides Cholesterol LDL Cholesterol, Calc HDL Cholesterol Lipase 13 Vitamin B12 Folate TSH Free T4 Urine Opiates Screen Urine Fentanyl Screen Ur Barbiturates Screen Ur Phencyclidine Scrn Ur Amphetamines Screen U Benzodiazepines Scrn Urine Cocaine Screen U Marijuana (THC) Screen Ethyl Alcohol < 10 T.pallidum Ab (EIA) Chlam trachomat DNA PCR COVID-19 (EZIO) COVID-19 Clin Com HIV 1&2 Ab/P24 Ag 4thGn N.gonorrhoeae DNA (PCR) 06/18/22 06/18/22 06/19/22 08:06 08:06 11:54 WBC RBC Hgb Hct MCV MCH MCHC RDW Plt Count MPV Immature Gran % (Auto) Neut % (Auto) Lymph % (Auto) [place] % (Auto) Eos % (Auto) Baso % (Auto) Lymph # (Auto) [place] # (Auto) Eos # (Auto) Baso # (Auto) Abs Immat Gran (auto) Absolute Neuts (auto) Absolute Nucleated RBC Nucleated RBC % (auto) Sodium Potassium Chloride Carbon Dioxide Anion Gap BUN Creatinine Estim Creat Clear Calc Estimated GFR Random Glucose Estimat Average Glucose Hemoglobin A1c % Calcium Magnesium 2.0 Total Bilirubin Direct Bilirubin AST ALT Alkaline Phosphatase Total Protein Albumin Triglycerides 68 Cholesterol 124 LDL Cholesterol, Calc 78 HDL Cholesterol 33 Lipase Vitamin B12 427 Folate 5.8 TSH 0.76 Free T4 1.33 Urine Opiates Screen Urine Fentanyl Screen Ur Barbiturates Screen Ur Phencyclidine Scrn Ur Amphetamines Screen U Benzodiazepines Scrn Urine Cocaine Screen U Marijuana (THC) Screen Ethyl Alcohol T.pallidum Ab (EIA) Nonreactive Chlam trachomat DNA PCR COVID-19 (EZIO) COVID-19 Clin Com HIV 1&2 Ab/P24 Ag 4thGn N.gonorrhoeae DNA (PCR) 06/19/22 06/19/22 11:54 12:24 WBC RBC Hgb Hct MCV MCH MCHC RDW Plt Count MPV Immature Gran % (Auto) Neut % (Auto) Lymph % (Auto) [place] % (Auto) Eos % (Auto) Baso % (Auto) Lymph # (Auto) [place] # (Auto) Eos # (Auto) Baso # (Auto) Abs Immat Gran (auto) Absolute Neuts (auto) Absolute Nucleated RBC Nucleated RBC % (auto) Sodium Potassium Chloride Carbon Dioxide Anion Gap BUN Creatinine Estim Creat Clear Calc Estimated GFR Random Glucose Estimat Average Glucose Hemoglobin A1c % Calcium Magnesium Total Bilirubin Direct Bilirubin AST ALT Alkaline Phosphatase Total Protein Albumin Triglycerides Cholesterol LDL Cholesterol, Calc HDL Cholesterol Lipase Vitamin B12 Folate TSH Free T4 Urine Opiates Screen Urine Fentanyl Screen Ur Barbiturates Screen Ur Phencyclidine Scrn Ur Amphetamines Screen U Benzodiazepines Scrn Urine Cocaine Screen U Marijuana (THC) Screen Ethyl Alcohol T.pallidum Ab (EIA) Chlam trachomat DNA PCR NOT DETECTED COVID-19 (EZIO) COVID-19 Clin Com HIV 1&2 Ab/P24 Ag 4thGn Nonreactive N.gonorrhoeae DNA (PCR) NOT DETECTED Imaging Diagnostic Imaging Impressions Ankle X-Ray 06/17/22 21:06 IMPRESSION: Mild bimalleolar soft tissue swelling but no visible acute fracture, dislocation or subluxation seen the ankle mortise is intact. Unremarkable left knee exam. Knee X-Ray 06/17/22 21:06 IMPRESSION: Mild bimalleolar soft tissue swelling but no visible acute fracture, dislocation or subluxation seen the ankle mortise is intact. Unremarkable left knee exam. DS: Summary Hospital Course Hospital Course: Admission to adult psychiatry for exacerbation of bipolar disorder. Depakote, Olanzapine, Risperdal, Clonidine, Hydroxyzine, Klonopin were added for mood stability. During admission, pt's grandfather and pt requested to leave with family to [place] Mother agreed pt should attend and found him to be at baseline. Pt/family were encouraged to call and or return should symptoms exacerbate. Time spent discussing smoking cessation with patient: 3 to 10 minutes Status at Discharge Functional status at discharge: independent ambulation Overall status at discharge: patient is back to baseline Time Spent with Patient Time attestation: Total time spent providing and/or coordinating discharge services: 45 Time spent: Greater than 30 minutes Discharge Plan Discharge Patient Disposition: Home, Self-Care Discharge Diagnosis: Bipolar Disorder Referrals: [facility] [Other] (Walk in if needed.) Psychiatric Med Management: Jeanette Hilliard [Other] - 07/06/22 10:30 am (This appointment is in-office) Discharge Medications: New clonidine HCl 0.1 mg Tablet 0.1 mg PO TID PRN (Reason: hyperarousal, anxiety) Qty: 30 1RF Protocol: Hold for SBP< HOLD for SBP < : 90 loperamide 2 mg Capsule 2 mg PO Q6H PRN (Reason: Diarrhea) Qty: 15 0RF clonazepam 1 mg Tablet 1 mg PO BEDTIME PRN (Reason: insomnia) Qty: 7 4RF hydroxyzine HCl 25 mg Tablet 25 mg PO Q6H PRN (Reason: Anxiety) Qty: 30 1RF [place] Bismuth 262 mg Tablet 524 mg PO BID PRN (Reason: dyspepsia,diarrhea) Qty: 60 0RF risperidone 1 mg Tablet 1 mg PO BID Qty: 60 0RF divalproex 250 mg Tablet Extended Release 24 Hr 750 mg PO BEDTIME Qty: 90 0RF olanzapine 5 mg tablet 5 mg PO BEDTIME Qty: 30 1RF Rx Instructions: 5 mg at bedtime and 5 mg daily as needed for increase in anxiety, agitation. lidocaine [Lidoderm] 5 % adhesive patch,medicated 1 patch topical DAILY Qty: 30 0RF Rx Instructions: leave on most painful area for up to 12 hrs Discharge Orders: Discharge Order (Routine); Ordered 06/23/22 Ordered By: Shireen Vazquez Diet: Advance to usual diet Activity on Discharge: As tolerated Stand Alone Forms: Patient Portal Discharge page, Community Support Care Plan Goals: Mood Stabilization Health Concerns: Bipolar Disorder Plan of Treatment: Attend scheduled appointments Take medications as directed Call/Return as needed Utilize crisis services as needed [phone]. Please call [phone] next week so we may schedule out pt lab work to monitor your medicines. Assessment: Alert, oriented, mild pressure. In a telephone discussion with pt and mother, mother commented that she thought pt sounded amazing and very level headed. Both discussed discharge parameters, the only disagreement being that pt will continue to use cannabis. He agreed to take his medications, follow home rules, re-start his school program, attend therapy/psychiatry. Denies SI, no sx of psychosis Discharge Date/Time: 06/23/22 14:09
== END 2022-06-23 14:09 | disposition home or self-care (01) | DRG 753 ==
LOC: HO.ED 06-17 01:51 → HO.PM5 06-17 14:30
PROVIDERS: Emergency Medicine; Nurse Practitioner Family; Registered Nurse; Admitting Provider Clinical Nurse Specialist Psychiatric/Mental Health, Adult; Emergency Provider Internal Medicine; Visit Provider Clinical Nurse Specialist Psychiatric/Mental Health, Adult
DX: F31.9 Bipolar disorder, unspecified (principal); Z20.822 Contact with and (suspected) exposure to COVID-19; Z79.899 Other long term (current) drug therapy
CPT/HCPCS: 36415; 73564; 73610; 80048; 80053; 80061; 80076; 80307; 82077; 82607; 82746; 83036; 83690; 83735; 84439; 84443; 85025; 86780; 87389; 87491; 87591; 87635; 93005; 99285

== ENCOUNTER 2024-09-07 18:07 | Emergency (ER) | payer MEDICAID, SELFPAY | END 2024-09-07 19:10 | disposition left against medical advice (07) | PROVIDERS: Emergency Provider Emergency Medicine | DX: Z76.0 Encounter for issue of repeat prescription (principal) ==